=== PATIENT | male | born 1960 | race Two or more races ===

== ENCOUNTER 2024-11-25 08:07 | Emergency (ER) | payer BC, SELFPAY ==
[2024-11-25 08:12] VITALS: BP 167/92; PULSE 112; RESP 18; TEMP 36.6; O2SAT 95
[2024-11-25 08:13] VITALS: BMI 26.6
--- NOTE | 2024-11-25 08:25 | PC.NURSE ---
PT BROUGHT IN BY EMS WITH [employer] OFFICER AT BEDSIDE. PER EMS PT WAS TOLD THAT HE WAS GOING TO [facility] AND BEGAN SHAKING ALL OVER BUT MAINTAINED CONSCIOUSNESS AND WAS TALKING WITH OFFICER DURING EPISODE. PT DENIES ANY PAIN AT T HIS TIME. PT ALERT AND ORIENTED. ASKED PT WHAT HAPPENED TODAY AND PT STATED HE JUST GOT INTO AN ARGUMENT WITH . OFFICER AT BEDSIDE.
[2024-11-25 08:28] VITALS: BP 157/98; PULSE 106; RESP 17; TEMP 36.6; O2SAT 98
--- NOTE | 2024-11-25 08:55 | EDNOTE_ITS ---
ED Medical Clearance RME/HPI General Chief complaint: Medical Clearance Stated complaint: SHAKING ACTIVITY Time Seen by Provider: 11/25/24 08:38 Arrival date/time: 11/25/24 08:07 Limitations: no limitations RME / HPI RME / HPI Narrative: 64 year old male with history of hypertension and anxiety presents to the ED brought in by EMS and [employer] for medical clearance today. Per officer, patient was shaking though he did not witness the event. While in the ED, patient has no complaints. Denies fevers, chills, chest pain, cough, shortness of breath, abdominal pain, n/v/d, or urinary symptoms. Patient denies any history of seizures,. Related Information Allergies Allergy/AdvReac Type Severity Reaction Status Date / Time No Known Allergies Allergy Verified 11/25/24 08:32 Review of Systems Review of Systems Systems Reviewed: All systems reviewed, normal except as documented Past Medical History Past Medical History CARDIAC: Positive Hypertension; Negative Congestive Heart Failure RESPIRATORY: Negative Chronic Obstructive Pulmonary Disease (COPD) GENITOURINARY: Negative Renal Disease ENDOCRINE: Negative Diabetes Mellitus Type 1 or Diabetes Mellitus Type 2 Social History SMOKING STATUS: Current every day smoker ED Exam General Limitations: Present no limitations General appearance: Present alert and in no apparent distress Head Head exam: Present atraumatic, normocephalic and normal inspection Eye Eye exam: Present normal appearance, PERRL and EOMI ENT ENT exam: Present normal exam, normal oropharynx and mucous membranes moist Neck Neck exam: Present normal inspection, full ROM and trachea midline Chest Chest inspection: Present normal inspection and symmetric chest wall rise Respiratory Respiratory exam: Present normal lung sounds bilaterally Cardiovascular Cardiovascular exam: Present regular rate, normal rhythm and normal heart sounds Abdominal Exam Abdominal exam: Present soft and normal bowel sounds Extremities Exam Extremities exam: Present normal inspection and full ROM Back Exam Back exam: Present normal inspection and full ROM Neurological Exam Neurological exam: Present alert, oriented X3 and CN II-XII intact Psychiatric Psychiatric exam: Present normal affect and normal mood Skin Skin exam: Present warm, dry, intact and normal color Course Quality Measures none Orders Category Date Time Status LORazepam [Ativan] Med 11/25/24 08:57 Once 1 mg PO X1 ONE Lisinopril [Prinivil] Med 11/25/24 08:57 Once 20 mg PO X1 ONE Vital Signs Vital signs: Vital Signs Temperature 97.9 F 11/25/24 08:12 Pulse Rate 112 H 11/25/24 08:12 Respiratory Rate 18 11/25/24 08:12 Blood Pressure 167/92 H 11/25/24 08:12 Pulse Oximetry (%) 95 11/25/24 08:12 Oxygen Delivery Method Room Air 11/25/24 08:12 Pulse ox is 95% on room air which is adequate. Medical Clearance MDM Narrative MDM Narrative:: Samara Rivera am scribing for and in the presence of Dr. Wilson. Patient data External records reviewed:: None (No previous ED visits for review) Clinical information provided by:: patient, EMS and law enforcement Social determinants that could affect healthcare access:: mental health Patient has the following chronic illnesses:: Hypertension, anxiety How is presenting disease/condition affected by chronic disease/condition?: uneffected by Evaluation data The following diagnostics were reviewed and interpreted by me:: other (specify) (No diagnostics indicated) Lab and/or radiology exams considered but not ordered:: None Interpretation Summary: N/A Medications / Prescriptions Medications or Prescriptions considered but not ordered:: None Medication administrations:: Medication Administration History Lisinopril (Lisinopril 20 Mg Tablet) 20 mg PO X1 ONE Stop: 11/25/24 08:58 Lorazepam (Lorazepam 0.5 Mg Tablet) 1 mg PO X1 ONE Stop: 11/25/24 08:58 See above Consultations Consultation(s) initiated? (list below): No Diagnosis Medical Clearance Differential Diagnosis: other (Seizure, anxiety, medical clearance for incarceration) Most likely diagnosis given after review of the tests above:: Anxiety Hypertension Admission Indicated Admission indicated?: not indicated Admission Request Was there a request for admission?: No Disposition Plan Disposition Plan: Discharge Discharge Attestation Discharge Attestation: The patient and all family members were given an opportunity to ask questions and understood the discharge instructions. Discharge instructions specifically effects, indications for sooner follow up or return to the emergency department, and the expected course of current diagnosis. Patient condition: Stable Discharge Plan Plan Patient Disposition: Senior Living/Court/Law Problem List Clinical Impression: Anxiety, Hypertension Patient/Caregiver Discharge Instructions Education Materials: ED Anxiety Reaction, ED Hypertension, Established Additional Instructions: Patient medically cleared for incarceration. Follow-up with your primary care doctor in 3 to 5 days for recheck. You can return to the emergency department sooner if symptoms worsen or if you notice any new, concerning issues. Print Language: French
[2024-11-25 09:04] VITALS: BP 148/101; PULSE 107
[2024-11-25 09:24] VITALS: BP 150/97; PULSE 98; RESP 18; O2SAT 95
== END 2024-11-25 09:27 ==
LOC: SERX 09:27
PROVIDERS: Emergency Provider Family Medicine
DX: F41.9 Anxiety disorder, unspecified (principal); I10 Essential (primary) hypertension; F17.210 Nicotine dependence, cigarettes, uncomplicated
CPT/HCPCS: 99282; A9270